=== PATIENT | female | born 1935 | race American Indian/Alaskan Native ===

== ENCOUNTER 2017-07-16 21:08 | Emergency (ER) | payer MEDICARE, OTHER ==
[~2017-07-16] VITALS: Ht 167.6 cm; Wt 86.2 kg
[~2017-07-16 21:08] MED LIST: ASPI81CH PO; CHOL10002 PO; CITA20 PO; CYAN1000 PO; GLUCOSAMINE CO1 EACH PO; LEVSOD75 PO; MELO7.5 PO; METO25 PO; Omeprazole20 M1 PO; Prinivil10 MG PO
[2017-07-17] MEDS ORDERED: TRAM50 PO (01:05)
[2017-07-17] MEDS ORDERED: ACET325 PO (01:06)
[2017-07-17] MEDS ORDERED: HYDR1TAB94 PO (01:07)
[2018-03-18] MEDS ORDERED: TRAZ50 PO (19:41)
[2018-03-18] MEDS ORDERED: ZYRTEC10 M2 PO (19:41)
[2018-03-18] MEDS ORDERED: MINO100 PO (19:42)
[2018-03-18] MEDS ORDERED: CEPH500 PO (22:26)
== END 2017-07-17 01:00 | disposition home or self-care (01) ==
LOC: ER 21:08
DX: S80.12XA Contusion of left lower leg, initial encounter (principal); M25.562 Pain in left knee; I48.91 Unspecified atrial fibrillation; F32.9 Major depressive disorder, single episode, unspecified; I10 Essential (primary) hypertension; Z88.2 Allergy status to sulfonamides; Z88.5 Allergy status to narcotic agent; Z88.8 Allergy status to other drugs, medicaments and biological substances; Z79.899 Other long term (current) drug therapy; Z79.82 Long term (current) use of aspirin; Z96.653 Presence of artificial knee joint, bilateral; Z90.710 Acquired absence of both cervix and uterus; Z90.49 Acquired absence of other specified parts of digestive tract; W18.30XA Fall on same level, unspecified, initial encounter
CPT/HCPCS: 29505; 70450; 73564; 73590; 99284

== ENCOUNTER 2017-08-01 17:53 | Emergency (ER) | payer MEDICARE, OTHER ==
[~2017-08-01] VITALS: Ht 162.6 cm; Wt 90.7 kg
[~2017-08-01 17:53] MED LIST changes: +ACET325 PO; +HYDR1TAB94 PO; +TRAM50 PO
[2018-03-18] MEDS ORDERED: TRAZ50 PO (19:41)
[2018-03-18] MEDS ORDERED: ZYRTEC10 M2 PO (19:41)
[2018-03-18] MEDS ORDERED: MINO100 PO (19:42)
[2018-03-18] MEDS ORDERED: CEPH500 PO (22:26)
== END 2017-08-01 18:54 | disposition home or self-care (01) ==
LOC: ER 17:53
DX: S01.01XA Laceration without foreign body of scalp, initial encounter (principal); F32.9 Major depressive disorder, single episode, unspecified; I10 Essential (primary) hypertension; I48.91 Unspecified atrial fibrillation; W18.30XA Fall on same level, unspecified, initial encounter
CPT/HCPCS: 12001; 99283

== ENCOUNTER 2017-08-11 16:47 | Emergency (ER) | payer MEDICARE, OTHER ==
[~2017-08-11] VITALS: Ht 162.6 cm; Wt 81.7 kg
[2017-08-11] MEDS ORDERED: ASPI81CH PO (17:15)
[2017-08-11] MEDS ORDERED: CYAN500 PO (17:16)
[2017-08-11] MEDS ORDERED: CITA20 PO (17:16)
[2017-08-11] MEDS ORDERED: LISI20 PO (17:17)
[2017-08-11] MEDS ORDERED: Synthroid75 MCG PO (17:17)
[2017-08-11] MEDS ORDERED: Omeprazole20 M1 PO (17:17)
[2017-08-11] MEDS ORDERED: CHOL10002 PO (17:18)
[2017-08-11] MEDS ORDERED: METO25 PO (17:19)
[2017-08-11] MEDS ORDERED: DOCU100 PO (17:19)
[2017-08-11] MEDS ORDERED: TRAM50 PO (17:20)
[2017-08-11] MEDS ORDERED: HYDR1TAB94 (17:21)
[2018-03-18] MEDS ORDERED: TRAZ50 PO (19:41)
[2018-03-18] MEDS ORDERED: ZYRTEC10 M2 PO (19:41)
[2018-03-18] MEDS ORDERED: MINO100 PO (19:42)
[2018-03-18] MEDS ORDERED: CEPH500 PO (22:26)
== END 2017-08-11 18:52 | disposition home or self-care (01) ==
LOC: ER 16:47
DX: S00.01XA Abrasion of scalp, initial encounter (principal); S01.01XD Laceration without foreign body of scalp, subsequent encounter; M25.512 Pain in left shoulder; I10 Essential (primary) hypertension; F32.9 Major depressive disorder, single episode, unspecified; I48.91 Unspecified atrial fibrillation; F03.90 Unspecified dementia, unspecified severity, without behavioral disturbance, psychotic disturbance, mood disturbance, and anxiety; Z88.2 Allergy status to sulfonamides; Z88.5 Allergy status to narcotic agent; Z88.8 Allergy status to other drugs, medicaments and biological substances; Z79.82 Long term (current) use of aspirin; Z79.899 Other long term (current) drug therapy; Z79.891 Long term (current) use of opiate analgesic; Z85.828 Personal history of other malignant neoplasm of skin; W01.10XA Fall on same level from slipping, tripping and stumbling with subsequent striking against unspecified object, initial encounter
CPT/HCPCS: 70450; 72125; 73030; 99284

== ENCOUNTER → 2018-08-09 | Outpatient (CLI) | payer MEDICARE, OTHER ==
[~2018-08-09] MED LIST changes: +CEPH500 PO; +CYAN500 PO; +DOCU100 PO; +HYDR1TAB94; +LISI20 PO; +MINO100 PO; +Synthroid75 MCG PO; +TRAZ50 PO; +ZYRTEC10 M2 PO
[2018-08-09 13:17] LABS: Source, Urine Catheter
[2018-08-09 13:24] LABS: Appearance, Urine Clear (Clear); Bilirubin, Urine Neg (Neg); Blood, Urine Neg (Neg); Color, Urine Yellow (P-Yellow); Glucose Qualitative, Urine Neg (Neg); Ketones, Urine Neg (Neg); Leukocyte Esterase, Urine Neg (Neg); Nitrite, Urine Neg (Neg); Protein, Urine Neg (Neg); Urobilinogen, Urine NORM (Normal); pH, Urine 6.5 (5.0-8.0)
[2018-08-09 13:29] LABS: Hematocrit 35.6 % (33.0-51.0); Hemoglobin 11.3 g/dL (11.5-16.0); Mean Corpuscular HGB 30.5 pg (26.0-34.0); Mean Corpuscular HGB Conc 31.7 g/dL (31.5-36.5); Mean Corpuscular Volume 96 fL (80-100); Mean Platelet Volume 12.1 fL (9.1-12.4); Platelet Count 163 K/mm3 (150-400); RDW Coefficient Variation 13.2 % (11.7-14.2); RDW Standard Deviation 47.1 fL (35.1-46.3); White Blood Cell Count 6.94 K/mm3 (4.00-11.30)
[2018-08-09 14:29] LABS: Bun/Creatinine Ratio 16.2 (12.0-20.0); Calcium, Blood 8.4 mg/dL (8.5-10.1); Creatinine, Blood 0.99 mg/dL (0.40-1.00); Potassium, Blood 3.6 mmol/L (3.5-5.5)
== END | disposition home or self-care (01) ==
LOC: EDSTATUS 09:25 → LAB UVN 13:15
PROVIDERS: Family Medicine
DX: N39.0 Urinary tract infection, site not specified (principal); R10.9 Unspecified abdominal pain; R53.1 Weakness
CPT/HCPCS: 80048; 81003; 84443; 85027; 85651

== ENCOUNTER 2018-10-12 14:30 | Emergency (ER) | payer MEDICARE, OTHER ==
[~2018-10-12] VITALS: Ht 162.6 cm; Wt 90.7 kg
== END 2018-10-12 18:53 | disposition home or self-care (01) ==
LOC: ER 14:30
DX: S01.01XA Laceration without foreign body of scalp, initial encounter (principal); S60.221A Contusion of right hand, initial encounter; E03.9 Hypothyroidism, unspecified; K21.9 Gastro-esophageal reflux disease without esophagitis; F32.9 Major depressive disorder, single episode, unspecified; I48.91 Unspecified atrial fibrillation; I10 Essential (primary) hypertension; Z88.2 Allergy status to sulfonamides; Z88.5 Allergy status to narcotic agent; Z88.8 Allergy status to other drugs, medicaments and biological substances; Z79.82 Long term (current) use of aspirin; Z79.899 Other long term (current) drug therapy; Z85.828 Personal history of other malignant neoplasm of skin; W01.0XXA Fall on same level from slipping, tripping and stumbling without subsequent striking against object, initial encounter
CPT/HCPCS: 12001; 70450; 72125; 73130; 90471; 90714; 99284-25

== ENCOUNTER → 2018-11-08 | Outpatient (CLI) | payer MEDICARE, OTHER | LOC: LAB SHORT 16:48 → LAB 16:48 | DX: S01.00XA Unspecified open wound of scalp, initial encounter (principal); L08.9 Local infection of the skin and subcutaneous tissue, unspecified; L30.4 Erythema intertrigo | CPT/HCPCS: 87070; 87077; 87147; 87186; 87205 ==

== ENCOUNTER 2019-01-20 23:13 | Inpatient (IN) | payer MEDICARE, OTHER ==
[~2019-01-20] VITALS: Ht 160 cm; Wt 96.6 kg
[~2019-01-20 23:13] MED LIST changes: -HYDR1TAB94
[2019-01-20] MEDS ORDERED: LEVFLO500 PO (23:24)
[2019-01-20] MEDS ORDERED: LOSA50 PO (23:25)
[2019-01-20] MEDS ORDERED: ALBU3IS INH (23:26)
[2019-01-20] MEDS ORDERED: Acetaminophen650 M1 PO (23:27)
[2019-01-20] MEDS ORDERED: Florastor250 MG PO (23:27)
[2019-01-20] MEDS ORDERED: MOTRIN IB200 MG PO (23:28)
[2019-01-20] MEDS ORDERED: NITR.4SL SL (23:29)
[2019-01-20] MEDS ORDERED: MIRALAX17 GM PO (23:29)
[2019-01-20] MEDS ORDERED: NYST100000 TOP (23:30)
[2019-01-20] MEDS ORDERED: ONDA4 PO (23:30)
[2019-01-20] MEDS ORDERED: HYDCOR2.5C PR (23:32)
[2019-01-20] MEDS ORDERED: KETO15TC TOP (23:33)
[2019-01-20 23:34] LABS: BASOPHILS ABSOLUTE AUTO 0.02 K/mm3 (0.00-0.23); BASOPHILS PERCENT AUTO 0 % (0-2); EOSINOPHILS ABSOLUTE AUTO 0.04 K/mm3 (0.00-0.68); EOSINOPHILS PERCENT AUTO 0 % (0-6); Hematocrit 33.3 % (33.0-51.0); Hemoglobin 10.7 g/dL (11.5-16.0); IMMATURE GRAN ABSOLUTE AUTO 0.09 K/mm3 (0.00-0.10); IMMATURE GRAN PERCENT AUTO 1 % (0-1); LYMPHOCYTES ABSOLUTE AUTO 1.25 K/mm3 (0.84-5.20); LYMPHOCYTES PERCENT AUTO 8 % (21-46); MONOCYTES ABSOLUTE AUTO 1.04 K/mm3 (0.16-1.47); MONOCYTES PERCENT AUTO 7 % (4-13); Mean Corpuscular HGB 31.5 pg (26.0-34.0); Mean Corpuscular HGB Conc 32.1 g/dL (31.5-36.5); Mean Platelet Volume 11.7 fL (9.1-12.4); NEUTROPHILS ABSOLUTE AUTO 12.54 K/mm3 (1.96-9.15); NEUTROPHILS PERCENT AUTO 84 % (41-73); Platelet Count 145 K/mm3 (150-400); RDW Standard Deviation 50.4 fL (35.1-46.3); White Blood Cell Count 14.98 K/mm3 (4.00-11.30)
[2019-01-20 23:36] LABS: Mean Corpuscular Volume 98 fL (80-100)
[2019-01-20 23:48] LABS: Alanine Aminotransfer (ALT/SGP 13 U/L (12-78); Albumin, Blood 2.3 g/dL (3.4-5.0); Albumin/Globulin Ratio 0.6 (0.8-1.8); Alk Phos 159 U/L (50-136); Anion Gap 6 mmol/L (6-16); Aspartate Aminotrans (AST/SGOT 11 U/L (12-37); Bilirubin, Total 0.7 mg/dL (0.1-1.0); Blood Urea Nitrogen 20 mg/dL (8-24); Bun/Creatinine Ratio 18.2 (12.0-20.0); CO2, Blood 29 mmol/L (21-32); Chloride, Blood 97 mmol/L (98-108); Glomerular Filtration Rate 50 (60-); Glucose, Blood 110 mg/dL (70-99); Potassium, Blood 4.2 mmol/L (3.5-5.5); Sodium, Blood 132 mmol/L (136-145); Total Protein, Blood 6.3 g/dL (6.4-8.2); Troponin I <0.015 ng/mL (0.000-0.040)
[2019-01-20 23:50] LABS: International Normalized Ratio 0.99; Prothrombin Time Results 10.5 Sec (9.7-11.5)
[2019-01-21 00:19] LABS: Base Excess Venous 3.3 mmol/L; Bicarbonate Venous 26.8 mmol/L (24.0-30.0); PCO2 Venous 47.3 mmHg (38-42); PO2 Venous 70.8 mmHg (38-42); pH Blood Venous 7.39 (7.34-7.37)
[2019-01-21 00:30] LABS: Source, Urine Catheter
[2019-01-21 00:33] LABS: Bilirubin, Urine Neg (Neg); Blood, Urine 1+ (Neg); Glucose Qualitative, Urine Neg (Neg); Ketones, Urine Neg (Neg); Leukocyte Esterase, Urine 2+ (Neg); Nitrite, Urine Neg (Neg); Protein, Urine 2+ (Neg); Specific Gravity, Urine 1.015 (1.003-1.022); Urobilinogen, Urine 1+ (Normal)
[2019-01-21 00:35] LABS: Appearance, Urine Clear (Clear); Color, Urine Amber (P-Yellow)
[2019-01-21 00:45] LABS: Bacteria Few /hpf; Red Blood Cells, Urine 0-2 /hpf (0-2); Squamous Epithelial Cells Few /hpf (Few); White Blood Cells, Urine 25-50 /hpf (0-5)
--- NOTE | 2019-01-21 04:07 | NUR ---
RECEIVED REPORT FROM JITENDRA VILLALPANDO RN. PT ARRIVED TO ROOM 360 VIA GURNEY. PT TRANSFERRED TO BED WITH 1PA. ALERT TO NAME AND PLACE. RESP E/U ON 1L VIA [place]. NO PAIN AT THIS TIME. PT ORIENTED TO CALL LT SYSTEM. CALL LT PLACED WITHIN REACH. WILL CONTINUE TO MONITOR AND PROVIDE CARE.
--- NOTE | 2019-01-21 05:20 | NUR ---
SHIFT SUMMARY: ER ADMIT AT 0407. BASELINE CONFUSION. A [place]. ACCIDENTALLY PULLED IV OUT. PLACE ON O2 IN ER, BASELINE RA. 1PA NEEDED. BED ALARM ON FOR FALL RISK PRECAUTIONS, CALL LT IN REACH. WILL CONTINUE TO MONITOR AND PROVIDE CARE UNTIL SHIFT REPORT.
[2019-01-21 05:29] LABS: BASOPHILS ABSOLUTE AUTO 0.02 K/mm3 (0.00-0.23); BASOPHILS PERCENT AUTO 0 % (0-2); EOSINOPHILS ABSOLUTE AUTO 0.07 K/mm3 (0.00-0.68); EOSINOPHILS PERCENT AUTO 1 % (0-6); Hemoglobin 10.2 g/dL (11.5-16.0); IMMATURE GRAN ABSOLUTE AUTO 0.06 K/mm3 (0.00-0.10); IMMATURE GRAN PERCENT AUTO 1 % (0-1); LYMPHOCYTES ABSOLUTE AUTO 1.53 K/mm3 (0.84-5.20); LYMPHOCYTES PERCENT AUTO 12 % (21-46); MONOCYTES PERCENT AUTO 6 % (4-13); Mean Corpuscular HGB Conc 31.9 g/dL (31.5-36.5); Mean Corpuscular Volume 97 fL (80-100); Mean Platelet Volume 12.3 fL (9.1-12.4); NEUTROPHILS PERCENT AUTO 81 % (41-73); Platelet Count 142 K/mm3 (150-400); RDW Standard Deviation 50.1 fL (35.1-46.3); Red Blood Cell Count 3.29 M/mm3 (3.80-5.20); White Blood Cell Count 12.98 K/mm3 (4.00-11.30)
[2019-01-21 05:47] LABS: Bun/Creatinine Ratio 17.4 (12.0-20.0); Calcium, Blood 8.1 mg/dL (8.5-10.1); Creatinine, Blood 1.09 mg/dL (0.40-1.00); Potassium, Blood 4.1 mmol/L (3.5-5.5)
--- NOTE | 2019-01-21 17:37 | NUR ---
JULIO IS COMPLIANT WITH CARES. SHE IS ORIENTED TO SELF ONLY. NO DISTURBANCES OR ACUTE CHANGES TO PATIENT THIS SHIFT. CALL LIGHT WITHIN REACH.
--- NOTE | 2019-01-22 07:27 | NUR ---
shift summary. Pt cooperative with cares last pm. Confused at times. Pt has ocasional productive cough. Pt has very irregular heart beat making it hard to get an accurate blood pressure. Bp last pm was 190/108 which pt got 10 mg of hydralazine for. Bp after was 169/86. Pt bedridden.
[2019-01-22] MEDS ORDERED: LEVSOD75 PO (13:14)
[2019-01-22] MEDS ORDERED: TRAZ50 PO (13:15)
[2019-01-22] MEDS ORDERED: Vitamin D2000 UNIT PO (13:17)
[2019-01-22] MEDS ORDERED: DOCU100 PO (13:18)
[2019-01-22] MEDS ORDERED: GABA100 PO (13:19)
[2019-01-22] MEDS ORDERED: Mucinex600 MG PO (13:20)
--- NOTE | 2019-01-23 03:52 | NUR ---
Shift summary. Pt doing better this pm. Pt has been able to sleep most of shift. Pt was up to bedside commode with one person assist and did well. Pt has been alert, oriented and appropriate this pm and making sense. No cough noted.
[2019-01-23 06:21] LABS: BASOPHILS ABSOLUTE AUTO 0.01 K/mm3 (0.00-0.23); BASOPHILS PERCENT AUTO 0 % (0-2); EOSINOPHILS ABSOLUTE AUTO 0.19 K/mm3 (0.00-0.68); EOSINOPHILS PERCENT AUTO 2 % (0-6); Hematocrit 31.5 % (33.0-51.0); IMMATURE GRAN ABSOLUTE AUTO 0.07 K/mm3 (0.00-0.10); IMMATURE GRAN PERCENT AUTO 1 % (0-1); LYMPHOCYTES PERCENT AUTO 13 % (21-46); MONOCYTES ABSOLUTE AUTO 0.57 K/mm3 (0.16-1.47); MONOCYTES PERCENT AUTO 7 % (4-13); Mean Corpuscular HGB 30.7 pg (26.0-34.0); Mean Corpuscular HGB Conc 31.7 g/dL (31.5-36.5); Mean Corpuscular Volume 97 fL (80-100); Mean Platelet Volume 11.4 fL (9.1-12.4); NEUTROPHILS ABSOLUTE AUTO 6.48 K/mm3 (1.96-9.15); NEUTROPHILS PERCENT AUTO 77 % (41-73); Platelet Count 158 K/mm3 (150-400); RDW Coefficient Variation 13.9 % (11.7-14.2); RDW Standard Deviation 49.5 fL (35.1-46.3); Red Blood Cell Count 3.26 M/mm3 (3.80-5.20); White Blood Cell Count 8.42 K/mm3 (4.00-11.30)
[2019-01-23 06:38] LABS: Albumin, Blood 2.3 g/dL (3.4-5.0); Anion Gap 5 mmol/L (6-16); Blood Urea Nitrogen 9 mg/dL (8-24); Bun/Creatinine Ratio 11.9 (12.0-20.0); CO2, Blood 28 mmol/L (21-32); Calcium, Blood 8.3 mg/dL (8.5-10.1); Chloride, Blood 104 mmol/L (98-108); Creatinine, Blood 0.75 mg/dL (0.40-1.00); Glomerular Filtration Rate >60 (60-); Glucose, Blood 90 mg/dL (70-99); Phosphorus, Blood 3.5 mg/dL (2.5-4.9); Sodium, Blood 137 mmol/L (136-145)
--- NOTE | 2019-01-23 11:43 | NUR ---
Patient is sitting up in bed and alert. Patient is unclear about where she is and hazy about many of the details of her past and even about her family. Patient is certain about a few details, like she knew her has , that her grown children are spread out all over the country and that she has an older brother and younger sister. After I explain that patient is in the hospital she had no idea why she would be placed here. Patient is vocal about her brook and allowed me to pray for her. Patient said several times during my visit that she is grateful for the things she can do. I reinforced this helpful attitude. Patient is very appreciative of my visit and asked me to come back soon, which I am happy to do.
--- NOTE | 2019-01-23 17:11 | NUR ---
SUMMARY PT SITTING UP IN BED WATCHING TV, PT HAS BEEN CONFUSED OFF AND ON T/O THE DAY, FORGETFUL, DOES NOT USE HER CALL LIGHT DESPITE BEING EDUCATED ON HOW TO USE IT, PT OCC WILL CALL OUT FOR HELP, PT MED PER EMAR FOR PAIN, VSS, NO ACUTE CHANGES, WILL CONT TO MONITOR
--- NOTE | 2019-01-24 05:44 | NUR ---
Shift summary: Pt slept most of shift last pm. Pt has been alert, oriented and appropriate/cooperative with cares last pm. Mentation improving. Pt up to bedside commode x 2 with one person assist. Pt has not been incontinent last pm.
[2019-01-24] MEDS ORDERED: CEFU500T30 PO (12:12)
--- NOTE | 2019-01-24 16:26 | NUR ---
SUMMARY/DISCHARGE PT DISCHARGED BACK TO [facility], REPORT CALLED TO JOHNNY THE NURSE OVER THERE, PT TAKEN VIA WHEELCHAIR BY DC CAB
== END 2019-01-24 16:18 | DRG 871 ==
LOC: ER 23:13 → MEDS 01-21 03:59 → ENPENDDIS 01-24 12:14 → MEDS 01-24 16:18
PROVIDERS: Emergency Medicine; Internal Medicine; ADMIT Hospitalist
DX: A41.9 Sepsis, unspecified organism (principal); G92 Toxic encephalopathy; J18.9 Pneumonia, unspecified organism; J96.91 Respiratory failure, unspecified with hypoxia; E87.1 Hypo-osmolality and hyponatremia; I48.91 Unspecified atrial fibrillation; I10 Essential (primary) hypertension; F32.9 Major depressive disorder, single episode, unspecified; K21.9 Gastro-esophageal reflux disease without esophagitis; E86.0 Dehydration; E03.9 Hypothyroidism, unspecified; Z79.82 Long term (current) use of aspirin; Z79.899 Other long term (current) drug therapy; Z88.5 Allergy status to narcotic agent; Z88.2 Allergy status to sulfonamides; Z88.8 Allergy status to other drugs, medicaments and biological substances
CPT/HCPCS: 36415; 71045; 80048; 80053; 80069; 81001; 82803; 83605; 84145; 84484; 85025; 85027; 85610; 85730; 87040; 87086; 93005; 93010; 94640; 94760; 96365; 99285-25; A9270; A9270-GY; J0456; J0696; J1650; J7030; J7050; J7120; P9612

== ENCOUNTER → 2019-09-26 | Outpatient (CLI) | payer MEDICARE, OTHER ==
[~2019-09-26] MED LIST changes: +ALBU3IS INH; +Acetaminophen650 M1 PO; +CEFU500T30 PO; +Florastor250 MG PO; +GABA100 PO; +HYDCOR2.5C PR; +KETO15TC TOP; +LEVFLO500 PO; +LOSA50 PO; +MIRALAX17 GM PO; +MOTRIN IB200 MG PO; +Mucinex600 MG PO; +NITR.4SL SL; +NYST100000 TOP; +ONDA4 PO; +Vitamin D2000 UNIT PO
[2019-09-26 13:55] LABS: Bilirubin, Urine Neg (Neg); Blood, Urine 1+ (Neg); Glucose Qualitative, Urine Neg (Neg); Ketones, Urine Neg (Neg); Leukocyte Esterase, Urine 3+ (Neg); Nitrite, Urine Neg (Neg); Protein, Urine 1+ (Neg); Specific Gravity, Urine 1.015 (1.003-1.022); Urobilinogen, Urine NORM (Normal)
[2019-09-26 13:58] LABS: Appearance, Urine Hazy (Clear); Color, Urine Yellow (P-Yellow)
[2019-09-26 14:02] LABS: Red Blood Cells, Urine 0-2 /hpf (0-2); White Blood Cells, Urine 50-100 /hpf (0-5)
[2019-09-26 14:03] LABS: Bacteria Many /hpf; Squamous Epithelial Cells Many /hpf (Few)
== END | disposition home or self-care (01) ==
LOC: EDSTATUS 11:43 → LAB UVN 13:35
PROVIDERS: Family Medicine
DX: N39.0 Urinary tract infection, site not specified (principal)
CPT/HCPCS: 81001; 87077; 87086; 87186

== ENCOUNTER → 2019-11-24 | Outpatient (CLI) | payer MEDICARE, OTHER ==
[2019-11-24 18:30] LABS: Bilirubin, Urine Neg (Neg); Blood, Urine 2+ (Neg); Glucose Qualitative, Urine Neg (Neg); Ketones, Urine Neg (Neg); Leukocyte Esterase, Urine 3+ (Neg); Nitrite, Urine Neg (Neg); Protein, Urine 1+ (Neg); Urobilinogen, Urine NORM (Normal)
[2019-11-24 18:38] LABS: Appearance, Urine Cloudy (Clear); Color, Urine Yellow (P-Yellow)
[2019-11-24 18:39] LABS: Bacteria Many /hpf; Squamous Epithelial Cells Mod /hpf (Few); White Blood Cells, Urine 25-50 /hpf (0-5)
== END | disposition home or self-care (01) ==
LOC: EDSTATUS 10:30 → LAB UVN 16:46
PROVIDERS: Family Medicine
DX: N39.0 Urinary tract infection, site not specified (principal)
CPT/HCPCS: 81001; 87086

== ENCOUNTER → 2020-05-18 | Outpatient (CLI) | payer MEDICARE, OTHER ==
[2020-05-18 03:04] LABS: Bilirubin, Urine Neg (Neg); Blood, Urine 2+ (Neg); Glucose Qualitative, Urine Neg (Neg); Ketones, Urine Neg (Neg); Leukocyte Esterase, Urine 3+ (Neg); Nitrite, Urine Neg (Neg); Protein, Urine 1+ (Neg); Specific Gravity, Urine 1.015 (1.003-1.022); Urobilinogen, Urine NORM (Normal)
[2020-05-18 03:05] LABS: Appearance, Urine Hazy (Clear); Color, Urine Yellow (P-Yellow)
[2020-05-18 03:17] LABS: Bacteria Many /hpf; Red Blood Cells, Urine Rare /hpf (0-2); Squamous Epithelial Cells Few /hpf (Few); White Blood Cells, Urine TNTC /hpf (0-5)
== END | disposition home or self-care (01) ==
LOC: LAB UVN 02:59 → EDSTATUS 11:21
PROVIDERS: Family Medicine
DX: N39.0 Urinary tract infection, site not specified (principal)
CPT/HCPCS: 81001; 87077; 87086; 87186

== ENCOUNTER → 2020-05-28 | Outpatient (CLI) | payer MEDICARE, OTHER ==
[2020-05-28 22:44] LABS: Bun/Creatinine Ratio 25.5 (12.0-20.0); Calcium, Blood 8.7 mg/dL (8.5-10.1); Creatinine, Blood 0.98 mg/dL (0.40-1.00); Potassium, Blood 3.6 mmol/L (3.5-5.5)
== END | disposition home or self-care (01) ==
LOC: EDSTATUS 11:23 → LAB UVN 21:00
PROVIDERS: Family Medicine
DX: I10 Essential (primary) hypertension (principal)
CPT/HCPCS: 80048

== ENCOUNTER → 2020-09-29 | Outpatient (CLI) | payer MEDICARE, OTHER ==
[2020-09-29 05:43] LABS: Source, Urine Clean Catch
[2020-09-29 05:48] LABS: Hematocrit 35.2 % (33.0-51.0); Hemoglobin 11.3 g/dL (11.5-16.0); Mean Corpuscular HGB 30.7 pg (26.0-34.0); Mean Corpuscular HGB Conc 32.1 g/dL (31.5-36.5); Mean Corpuscular Volume 96 fL (80-100); Mean Platelet Volume 12.9 fL (9.1-12.4); Platelet Count 138 K/mm3 (150-400); RDW Coefficient Variation 13.2 % (11.7-14.2); RDW Standard Deviation 46.5 fL (35.1-46.3); Red Blood Cell Count 3.68 M/mm3 (3.80-5.20); White Blood Cell Count 6.91 K/mm3 (4.00-11.30)
[2020-09-29 05:52] LABS: Bilirubin, Urine Neg (Neg); Blood, Urine Neg (Neg); Glucose Qualitative, Urine Neg (Neg); Ketones, Urine Neg (Neg); Leukocyte Esterase, Urine 2+ (Neg); Nitrite, Urine Neg (Neg); Protein, Urine Neg (Neg); Specific Gravity, Urine 1.015 (1.003-1.022); Urobilinogen, Urine NORM (Normal)
[2020-09-29 05:54] LABS: Appearance, Urine Clear (Clear); Color, Urine Yellow (P-Yellow)
[2020-09-29 05:58] LABS: Bacteria Few /hpf; Bun/Creatinine Ratio 36.8 (12.0-20.0); Calcium, Blood 8.6 mg/dL (8.5-10.1); Creatinine, Blood 0.98 mg/dL (0.40-1.00); Potassium, Blood 3.9 mmol/L (3.5-5.5); Red Blood Cells, Urine 0-2 /hpf (0-2); Squamous Epithelial Cells Mod /hpf (Few)
== END | disposition home or self-care (01) ==
LOC: LAB UVN 05:41 → EDSTATUS 11:21
PROVIDERS: Family Medicine
DX: I50.9 Heart failure, unspecified (principal); N39.0 Urinary tract infection, site not specified
CPT/HCPCS: 80048; 81001; 85027; 87086

== ENCOUNTER → 2021-02-05 | Outpatient (CLI) | payer MEDICARE, OTHER ==
[2021-02-05 16:07] LABS: Bilirubin, Urine Neg (Neg); Blood, Urine Neg (Neg); Color, Urine Yellow (P-Yellow); Glucose Qualitative, Urine Neg (Neg); Ketones, Urine Neg (Neg); Leukocyte Esterase, Urine 1+ (Neg); Nitrite, Urine Neg (Neg); Protein, Urine Neg (Neg); Specific Gravity, Urine 1.015 (1.003-1.022); Urobilinogen, Urine NORM (Normal)
[2021-02-05 16:38] LABS: Appearance, Urine Clear (Clear)
[2021-02-05 16:44] LABS: Amorphous Mod (0-Heavy); Bacteria Rare /hpf; Red Blood Cells, Urine 0-2 /hpf (0-2); Squamous Epithelial Cells Mod /hpf (Few)
== END ==
LOC: EDSTATUS 10:53 → LAB UVN 15:09
PROVIDERS: Internal Medicine
DX: R30.0 Dysuria (principal); R30.9 Painful micturition, unspecified; R35.0 Frequency of micturition
CPT/HCPCS: 81001; 87086